=== PATIENT | female | born 1960 | race Two or more races ===

== ENCOUNTER 2019-05-14 14:57 | Emergency (ER) | payer SELFPAY ==
[~2019-05-14] VITALS: Ht 162.6 cm; Wt 70.5 kg
[2019-05-14 14:58] VITALS: BP 136/76
== END 2019-05-14 15:58 | disposition left against medical advice (07) ==
LOC: M ED 14:57
DX: Z53.29 Procedure and treatment not carried out because of patient's decision for other reasons (principal)